=== PATIENT | female | born 1965 | race Caucasian/White ===

== ENCOUNTER → 2018-12-25 | Outpatient (CLI) | payer OTHER ==
[~2018-12-25] MED LIST: CHOL500025 PO; DOXY-260 PO; MULT-885 PO; NAP500; NO ROUTINE MEDS; OMEP10SU PO
[2018-12-25 07:13] LABS: PLATELET COUNT, AUTOMATED 201 K/uL (150-450)
[2018-12-25 08:23] LABS: LDL CHOLESTEROL 132 mg/dl
== END ==
LOC: LAB 06:43
PROVIDERS: ATTEND Nurse Practitioner Family
DX: E55.9 Vitamin D deficiency, unspecified (principal); R42 Dizziness and giddiness
CPT/HCPCS: 36415; 82040; 82247; 82306; 82310; 82374; 82435; 82465; 82565; 82947; 83718; 84075; 84132; 84155; 84295; 84436; 84443; 84450; 84460; 84478; 84479; 84520; 85025

== ENCOUNTER → 2018-12-31 | Outpatient (CLI) | payer OTHER ==
--- NOTE | 2019-01-04 11:34 | RT HOLTER TEST ---
FACILITY: [facility] - [place] PATIENT NAME: MARYANA CORRAL : [id number] MR: [id number]: [id number] EXAM DATE: ORDERING PHYSICIAN: GARY BALLARD TECHNOLOGIST: FRANCY Hook-up date: 2018-12-31 13:24:00 Duration: 47:59:00 Test Indications: SYNCOPE, PEG Medications: NONE ON DIARY 100645 QRS complexes 845 Ventricular ectopics which represent <1 % of total QRS comp. 49 Supraventricular ectopics which represent <1 % of total QRS comp. * Paced QRS complexes which represent % of total QRS comp. VENTRICULAR ECTOPY 839 Isolated 125 Bigeminal Cycles 3 Couplets 0 Runs 0 Beats in Runs * Beats LONGEST at * BPM at :: -- * Beats FASTEST at * BPM at :: -- SUPRAVENTRICULAR ECTOPY 47 Isolated 1 Couplets 0 Runs 0 Beats in Runs * Beats LONGEST at * BPM at :: -- * Beats FASTEST at * BPM at :: -- HEART RATES 42 MIN at 07:30:53 2019-01-02 69 AVG 150 MAX at 17:36:18 2019-01-01 LONGEST RR 1.600 secs at 04:25:31 2019-01-01 S-T LEVELS Channel 1 -3.200 mm MIN at 12:33:45 2019-01-02 1.400 mm MAX at 06:20:00 2019-01-02 Channel 2 -3.400 mm MIN at 14:48:30 2019-01-01 0.800 mm MAX at 08:35:15 2019-01-01 Channel 3 -2.200 mm MIN at 12:23:15 2019-01-02 2.000 mm MAX at 04:32:30 2019-01-02 The patient had a number of symptom triggered events, but there were no consistent abnormalities foun d. She had a few ventricular ectopy (VE) and sinus tachycardia during a couple events, but mostly was in a normal sinus rhythm. She had no sympt oms with other VE or the minumum or maximum heart rates. The average heart rate was 69 beats per minute. She had rare, asymptomatic supraventricula r ectopy. Confirmed by SHAHRIAR BRIGHT ([id number]) on 01/04/2019 11:33:48 AM Referred By: Overread By: SHAHRIAR BRIGHT
== END ==
LOC: RESP 01:27
PROVIDERS: ATTEND Nurse Practitioner Family
DX: R55 Syncope and collapse (principal); R00.1 Bradycardia, unspecified
CPT/HCPCS: 93225